=== PATIENT | male | born 1990 | race Caucasian/White ===

== ENCOUNTER 2018-11-27 21:23 | Emergency (ER) | payer SELFPAY ==
[~2018-11-27] VITALS: Ht 180.3 cm; Wt 103.6 kg
[2018-11-27 22:23] VITALS: Ht 180.3 cm; Wt 103.6 kg
--- NOTE | 2018-11-28 02:48 | ERD ---
ER Documentation Chief Complaint Chief Complaint on/off cp x 3 days; seen in urgent care already; not in distress HPI 28-year-old male, previously healthy, presents the emergency department, complaining of 3 days with intermittent chest pain, described as sharp, reproducible by palpation and deep inspiration, 5/10. He denies palpitations, no shortness of breath, no personal history of coronary artery disease, no family history of heart disease. ROS All systems reviewed and are negative except as per history of present illness. Medications Home Meds Active Scripts Ibuprofen* (Motrin*) 400 Mg Tab, 400 MG PO Q6H PRN for PAIN AND OR ELEVATED TEMP, #20 TAB Prov:AMIRA CORREIA MD 11/28/18 Acetaminophen* (Tylenol*) 325 Mg Tablet, 2 TAB PO Q6 PRN for PAIN AND OR ELEVATED TEMP, #20 TAB Prov:AMIRA CORREIA MD 11/28/18 Allergies Allergies: Coded Allergies: No Known Allergy (Unverified , 11/27/18) PMhx/Soc Medical and Surgical Hx: pt denies Medical Hx, pt denies Surgical Hx Hx Alcohol Use: No Hx Substance Use: No Hx Tobacco Use: Yes Smoking Status: Former smoker FmHx Family History: No diabetes, No coronary disease Physical Exam Vitals Vital Signs Date Temp Pulse Resp B/P (MAP) Pulse Ox O2 O2 Flow FiO2 Time Delivery Rate 11/27/18 97.0 75 20 182/92 100 22:23 (122) Physical Exam Patient alert, oriented, vital signs stable. HEAD: Normocephalic, atraumatic. EYES: PERRLA, EOMI, Sclera and conjunctiva appear normal. NOSE: Clear and patent nostrils. EARS: Canals clear, tympanic membranes WNL. MOUTH: normal lips and tongue, no oral lesions. THROAT: Normal oropharynx, no tonsillar exudates. NECK: Supple, No lymphadenopathy. Full ROM without pain or tenderness. HEART: RRR, no rubs, murmurs, clicks or gallops. LUNGS: Clear to auscultation. ABDOMEN: Soft, non-tender without masses or hepatosplenomegaly. EXTREMITIES: No edema bilaterally. BACK: Full ROM, no deformity, normal back exam NEURO: Cranial nerves grossly intact, no motor or sensory deficit SKIN: No rashes, no petechia. Results 24 hrs 23:26 EKG read by me: Rate/Rhythm: Regular rate and rhythm at a rate of 69 Intervals: Normal No acute ST changes. No T wave inversion Impression: No evidence of acute ischemia or arrhythmia 02:31 EKG read by me: Rate/Rhythm: Regular rate and rhythm at a rate of 65 Intervals: Normal No acute ST changes. No T wave inversion Impression: No evidence of acute ischemia or arrhythmia Patient: GIOVANY RAMAN : 1990 Age: 28 Sex: M MR #: [id number] [facility] #: [id number] DOS: 11/28/18 0220 Ordering MD: AMIRA CORREIA MD Location: [facility] Room/Bed: PROCEDURE: XR Chest. CLINICAL INDICATION: Chest wall pain. TECHNIQUE: PA and Lateral views of the chest were obtained. COMPARISON: None. FINDINGS: Heart size is at the upper limits of normal. The lungs are clear. No signs of pleural fluid or pneumothorax are seen. The osseous structures and soft tissues are unremarkable. IMPRESSION: No evidence for active cardiopulmonary disease. Procedures/MDM Vital signs stable. Differential diagnosis include but not limited to: URI, PNA, chostochondritis, GERD, musculoskeletal injury, less likely PE, pericarditis, endocarditis. Pertinent Data: 12 Lead ECG: Sinus rhythm, no ST changes, normal T wave, normal intervals Radiology: Chest x-rays: Normal Physical examination and clinical presentation consistent most likely with atypical chest pain most likely secondary to costochondritis. During the ED course the patient remained stable, no new complaints. Results and clinical impression discussed with patient who agrees with management. The patient is stable to be treated outpatient and will be discharged home with a Rx for ibuprofen; some side effects of prescribed medications (headache, rash, nausea, vomiting, diarrhea, drowsiness, hab ituation, bleeding, hypertension, interactions with other medications) were reviewed. The patient was informed that the evaluation in the emergency department has been done to rule out an acute emergency, therefore, chronic conditions like malignancy or autoimmune diseases have not been evaluated; therefore, the patient was instructed to follow up with the primary care provider in the next 48h. If symptoms persist, worsen or new symptoms develop, then patient should return to the ED immediately. Instructions explained and given directly by me to the patient with acknowledgment and demonstrated understanding. Disclaimer: Inadvertent spelling and grammatical errors are likely due to EHR/dictation software use and do not reflect on the overall quality of patient care. Also, please note that the electronic time recorded on this note does not necessarily reflect the actual time of the patient encounter. Departure Diagnosis: Primary Impression: Atypical chest pain Condition: Stable Additional Instructions: Thank you very much for allowing us to participate in your care. Your health and safety is our top priority at [facility]. The evaluation in the emergency department has been done to rule out an acute emergency, chronic conditions like malignancy or other diseases have not been evaluated; therefore, you need to follow up with a primary care provider in the next 48h. If symptoms persist, worsen or new symptoms develop, then patient should return to the ED immediately. Call your primary care doctor TOMORROW for an appointment during the next 2-4 days and bring all the information provided. Have prescriptions filled and follow precisely the directions on the label. If the symptoms get worse and your provider is unavailable, return to the Emergency Department immediately. AMIRA CORREIA MD November 28, 2018 02:48
[2018-11-28] MEDS ORDERED: IBUP-1561 PO (03:01)
[2018-11-28] MEDS ORDERED: ACET325T33 PO (03:01)
[2018-11-28 04:00] VITALS: BP 148/86; PULSE 77; RESP 22
== END 2018-11-28 04:02 | disposition home or self-care (01) ==
LOC: FTE 21:23
DX: R07.89 Other chest pain (principal); Z87.891 Personal history of nicotine dependence
CPT/HCPCS: 71046; 93005

== ENCOUNTER 2018-12-01 04:41 | Emergency (ER) | payer SELFPAY ==
[~2018-12-01] VITALS: Ht 185.4 cm; Wt 102.9 kg
[~2018-12-01 04:41] MED LIST: ACET325T33 PO; IBUP-1561 PO
[2018-12-01 04:45] VITALS: BP 169/98; PULSE 86; RESP 18; Ht 185.4 cm; Wt 102.9 kg
[2018-12-01] MEDS ORDERED: FAMO-96 PO (06:24)
[2018-12-01] MEDS ORDERED: NAPR-985 PO (06:24)
--- NOTE | 2018-12-01 07:05 | ERD ---
ER Documentation Chief Complaint Chief Complaint chest pain x 1 hour. was here 4 days ago for same HPI 28-year-old male presenting with chest pain x1 hour. Patient states that he had some occasional chest pain and when he bent his arm and leaned on it he developed numbness in his arm. He states that his chest pain was resolved spontaneously and he has not taken any medications. He states that sometimes he does have some epigastric pain after eating and he is unsure if he has acid reflux. He had the symptoms occur last night after eating tacos. Denies fevers. Denies changes in urination or bowel mood. Denies vomiting. Denies medical problems. NKDA. Surgical history denies. Social history smokes marijuana but stopped smoking cigarettes 1 month ago. ROS All systems reviewed and are negative except as per history of present illness. Medications Home Meds Active Scripts Naproxen* (Naprosyn*) 500 Mg Tablet, 500 MG PO BID PRN for PAIN AND/OR INFLAMMATION, #30 TAB Prov:BETZY MARIE PA-C 12/01/18 Famotidine* (Pepcid*) 20 Mg Tablet, 20 MG PO BID for 4 Days, #30 TAB Prov:BETZY MARIE PA-C 12/01/18 Ibuprofen* (Motrin*) 400 Mg Tab, 400 MG PO Q6H PRN for PAIN AND OR ELEVATED TEMP, #20 TAB Prov:AMIRA CORREIA MD 11/28/18 Acetaminophen* (Tylenol*) 325 Mg Tablet, 2 TAB PO Q6 PRN for PAIN AND OR ELEVATED TEMP, #20 TAB Prov:AMIRA CORREIA MD 11/28/18 Allergies Allergies: Coded Allergies: No Known Allergy (Unverified , 11/27/18) PMhx/Soc Medical and Surgical Hx: pt denies Medical Hx, pt denies Surgical Hx Hx Alcohol Use: Yes Hx Substance Use: Yes (MARIJUANA) Hx Tobacco Use: No Smoking Status: Former smoker FmHx Family History: No diabetes, No coronary disease, No other Physical Exam Vitals Vital Signs Date Temp Pulse Resp B/P (MAP) Pulse Ox O2 O2 Flow FiO2 Time Delivery Rate 12/01/18 97.1 86 18 169/98 100 04:45 (121) Physical Exam GENERAL: The patient is well-appearing, well-nourished, in no acute distress HEENT: Atraumatic. Conjunctivae are pink. Pupils equal, round, and reactive to light. There is no scleral icterus. Tympanic membranes clear bilaterally. Oropharynx clear. NECK: C-spine is soft and supple. There is no meningismus. There is no cervical lymphadenopathy. CHEST: Clear to auscultation bilaterally. There are no rales, wheezes or rhonchi. HEART: Regular rate and rhythm. No murmurs, clicks, rubs or gallops. EXTREMITIES: Equal pulses bilaterally. There is no peripheral clubbing, cyanosis or edema. No focal swelling or erythema. Full range of motion. Grossly neurovascularly intact. NEUROLOGIC: Alert and oriented. Cranial nerves II through XII intact. Motor strength in all 4 extremities with 5 out of 5 strength. Sensation grossly intact. Normal speech and gait. SKIN: There is no apparent rash or petechiae. The skin is warm and dry. Procedures/MDM EKG: Rate/Rhythm: 79 bpm Normal Sinus Rhythm QRS, ST, T-waves: No changes consistent w/ acute ischemia Impression: No evidence of ischemia or arrhythmia MDM: 28-year-old male presenting with arm numbness and occasional chest pain. Patient had some findings consistent with GERD and he will be treated with supportive medications. I have low suspicion for acute abdominal emergency. I have low suspicion for cardiac or pulmonary emergency. I have low suspicion for nerve deficit or vascular injury. I have low suspicion for acute fracture dislocation. Patient is discharged with supportive medications and told to follow-up with primary care within 1 to 2 days for close evaluation. Patient is told symptoms change or worsen to return immediately to the ER. All questions answered at discharge Departure Diagnosis: Primary Impression: Chest pain Condition: Stable Patient Instructions: Chest Pain, Uncertain Cause Referrals: [facility] YOU HAVE RECEIVED A MEDICAL SCREENING EXAM AND THE RESULTS INDICATE THAT YOU DO NOT HAVE A CONDITION THAT REQUIRES URGENT TREATMENT IN THE EMERGENCY DEPARTMENT. FURTHER EVALUATION AND TREATMENT OF YOUR CONDITION CAN WAIT UNTIL YOU ARE SEEN IN YOUR DOCTORS OFFICE WITHIN THE NEXT 1-2 DAYS. IT IS YOUR RESPONSIBILITY TO MAKE AN APPOINTMENT FOR FOLOW-UP CARE. IF YOU HAVE A PRIMARY DOCTOR --you should call your primary doctor and schedule an appointment IF YOU DO NOT HAVE A PRIMARY DOCTOR YOU CAN CALL OUR PHYSICIAN REFERRAL HOTLINE AT IF YOU CAN NOT AFFORD TO SEE A PHYSICIAN YOU CAN CHOSE FROM THE FOLLOWING [facility] [id number] [facility] [address] [facility] [facility] [address] [facility] [address] [facility] [facility] [phone] [id number] [facility]. [facility] [address] Additional Instructions: FOLLOW UP WITH YOUR PRIMARY CARE PHYSICIAN TOMORROW.Return to this facility if you are not improving as expected. BETZY MARIE PA-C December 01, 2018 07:05
== END 2018-12-01 06:35 | disposition home or self-care (01) ==
LOC: FTE 04:41
DX: R07.9 Chest pain, unspecified (principal); Z87.891 Personal history of nicotine dependence
CPT/HCPCS: 93005